=== PATIENT | male | born 1975 | race Caucasian/White ===

== ENCOUNTER 2021-01-06 14:56 | Emergency (ER) | payer SELFPAY ==
[~2021-01-06] VITALS: Ht 175 cm; Wt 108.0 kg
[2021-01-06 15:02] VITALS: BP 156/86
--- NOTE | 2021-01-06 15:04 | ED Upper Extremity ---
General Stated Complaint: LT/RT ARM PAIN History of Present Illness Date Seen by Provider: Jan 06, 2021 Time Seen by Provider: 15:04 Initial Comments 45-year-old male presents with bilateral wrist pain. Patient has a diagnosis of carpal tunnel and is scheduled for surgery in 3 weeks. He reports he has been dealing with pain for 5-6 months. Patient reports that he is down here working from [place] and is here for 2 more weeks. Patient states he is taking both Aleve and ibuprofen for the pain. Patient has tried multiple other medications in the past. Patient reports that he wears his braces as directed. Patient presents because he states he is having difficulty sleeping due to the pain. Allergies and Home Medications Allergies Coded Allergies: amoxicillin (Verified Allergy, Mild, 01/06/21) tramadol (Verified Allergy, Unknown, Angioedema, 01/06/21) Patient Home Medication List Home Medication List Reviewed: Yes Review of Systems Constitutional: No chills, No fever Respiratory: no symptoms reported Cardiovascular: no symptoms reported Gastrointestinal: no symptoms reported Genitourinary: no symptoms reported Musculoskeletal: see HPI Skin: no symptoms reported Psychiatric/Neurological: No Symptoms Reported Physical Exam Vital Signs Vital Signs - First Documented 01/06/21 15:02 Temp 36.5 Pulse 92 Resp 18 B/P (MAP) 156/86 (109) Pulse Ox 98 O2 Delivery Room Air Capillary Refill : Height, Weight, BMI Height: '" Weight: lbs. oz. kg; BMI Method: General Appearance: WD/WN, no apparent distress Cardiovascular: normal peripheral pulses, regular rate, rhythm Respiratory: no respiratory distress, no accessory muscle use Shoulder: normal inspection Elbow/Forearm: normal inspection Wrist: Yes limited ROM, Yes soft tissue tenderness, Yes swelling Hand: normal inspection Progress/Results/Core Measures Results/Orders Vital Signs/I&O 01/06/21 15:02 Temp 36.5 Pulse 92 Resp 18 B/P (MAP) 156/86 (109) Pulse Ox 98 O2 Delivery Room Air Progress Progress Note : Progress Note Patient with symptoms consistent with bilateral carpal tunnel. Patient's story is somewhat concerning for pain seeking behavior however [employer] showed no prescriptions however he reports he is feeling some within the last couple months in [place]. I will prescribe him Celebrex and have him stop the ibuprofen and Aleve. I will give him 10 5/325 hydrocodone's. Patient has some mild swelling in the wrist area so I will give him a couple Lasix pills to try to decrease some of the swelling. This time we will not use any steroids due to potential surgery in 3 weeks. Patient stable discharged home Departure Impression Primary Impression: Carpal tunnel syndrome, bilateral Disposition: 01 HOME, SELF-CARE Condition: Stable Departure-Patient Inst. Referrals: NO,LOCAL PHYSICIAN (PCP/Family) Primary Care Physician Patient Instructions: Carpal Tunnel Exercises Scripts Hydrocodone/Acetaminophen (Hydrocodone-Acetamin 5-325 mg) 1 Each Tablet 1 TAB PO Q8H PRN for PAIN-MODERATE (5-7), #10 TAB Prov: LUCY ÁLVAREZ DO 01/06/21 Celecoxib (Celebrex) 100 Mg Capsule 100 MG PO BID, #30 CAP Prov: LUCY ÁLVAREZ DO 01/06/21 Furosemide (Lasix) 20 Mg Tablet 20 MG PO DAILY, #3 TAB Prov: LUCY ÁLVAREZ DO 01/06/21 LUCY ÁLVAREZ DO Jan 06, 2021 15:04
[2021-01-06] MEDS ORDERED: FURO-125 PO (15:39)
[2021-01-06] MEDS ORDERED: CELE100C PO (15:39)
[2021-01-06] MEDS ORDERED: ACHD5005 PO (15:39)
== END 2021-01-06 15:46 | disposition home or self-care (01) ==
LOC: ER FS 15:00
DX: G56.03 Carpal tunnel syndrome, bilateral upper limbs (principal)
CPT/HCPCS: 99282